=== PATIENT | female | born 1995 | race Caucasian/White ===

== ENCOUNTER 2017-10-15 20:52 | Emergency (ER) | payer BC ==
[~2017-10-15] VITALS: Ht 160 cm; Wt 53.1 kg
[2017-10-15 20:58] VITALS: TEMP 36.7; Ht 160 cm; Wt 53.1 kg
[2017-10-15] MEDS ORDERED: BCPILLS PO (21:15)
[2017-10-15] MEDS ORDERED: [UNRECOGNIZED DRUG - REMARK] (21:15)
[2017-10-15] MEDS ORDERED: PSEU1TAB2 PO (21:15)
--- NOTE | 2017-10-15 21:20 | EMERGENCY ROOM VISIT NOTE ---
History Report prepared by Tej: Kerwin Brown Under the Supervision of: Dr. Arleen Galeano D.O. First contact with patient: 21:01 Chief Complaint: RESPIRATORY PROBLEMS Stated Complaint: WHEEZING,BLOODY SPUTUM History of Present Illness The patient is a 22 year old female who presents to the Emergency Room with complaints of a worsening illness that started last week. She says that her original problem was that her left ear was really full and she had some congestion, so she went to [facility] 7 days ago and was put on Sudafed and a nasal spray. She states that she thinks her illness has moved into her chest, and she has been blowing bloody nasal congestion for 3 days now intermittently. No spontaneous nosebleed. The patient notes that she can hear some wheezing and can feel that her heart is racing. She says that she has been having a bit of a sore throat at night. She states that she has had a cough as well. She denies any chest pain or pressure, heart skipping or fluttering, shortness of breath, facial pain or pressure, or fevers or chills. She notes that she has been staying hydrated and she says that she does not drink much caffeine. She says that she has a family history of thyroid problems, but has never had her thyroid checked. Source of History: patient Onset: A week ago Position: other (global - illness) Quality: other (was seen at [facility] last week) Timing: worsening Associated Symptoms: + sorethroat, + cough, No fevers, No chills, No chest pain, No SOB Note: Associated symptoms: Bloody sputum. Can hear wheezing. Denies heart skipping or fluttering, facial pain or pressure. Review of Systems See HPI for pertinent positives & negatives. A total of 10 systems reviewed and were otherwise negative. Past Medical & Surgical Medical Problems: (1) Asthma (2) No chronic diseases present Family History FH: thyroid disease Hypertension Kidney disease Social History Smoking Status: Never Smoker Marital Status: single Housing Status: lives with roommate Occupation Status: student Current/Historical Medications Scheduled Azithromycin (Zithromax), 250 MG PO DAILY Control Pills ( Control Pills), 1 TAB PO DAILY Scheduled PRN Pseudoephedrine Hcl (Sudafed), 60 MG PO QID PRN for Nasal Congestion [Unknown Nasal [place]], 1 SPRAY NA UD PRN for Nasal Congestion Allergies Coded Allergies: POLLEN (Verified Allergy, Intermediate, Respiratory Symptoms, 10/15/17) Physical Exam Vital Signs Date Time Temp Pulse Resp B/P (MAP) Pulse Ox O2 Delivery O2 Flow Rate FiO2 10/15/17 23:17 91 18 121/74 100 10/15/17 21:39 Room Air 10/15/17 20:58 36.7 100 18 128/81 100 Room Air Physical Exam GENERAL: alert, anxious appearing, well nourished, no distress, non-toxic EYE EXAM: normal conjunctiva, PERRL and EOM's grossly intact OROPHARYNX: Little fluid behind TM's bilaterally, left greater than right, but no erythema or bulging, lips, buccal mucosa, and tongue normal and mucous membranes are moist NECK: supple, no nuchal rigidity, no adenopathy, non-tender LUNGS: Clear to auscultation. Normal chest wall mechanics HEART: no murmurs, S1 normal and S2 normal ABDOMEN: abdomen soft, non-tender, normo-active bowel sounds, no masses, no rebound or guarding. BACK: Back is symmetrical on inspection and there is no deformity, no midline tenderness, no CVA tenderness. SKIN: no rashes and no bruising UPPER EXTREMITIES: upper extremities are grossly normal. LOWER EXTREMITIES: No pitting edema. NEURO EXAM: Normal sensorium, cranial nerves II-XII [grossly] intact, normal speech, no [gross] weakness of arms, no [gross] weakness of legs. [No drift. Finger to nose intact. Gross sensation intact.] Medical Decision & Procedures ER Provider Diagnostic Interpretation: X-ray results have been interpreted by the radiologist and reviewed by me. CHEST 2 VIEWS ROUTINE CLINICAL HISTORY: Cough. COMPARISON STUDY: No previous studies for comparison. FINDINGS: Lung volumes are normal. No pneumothorax or pleural effusion is present. There is no consolidation. Pulmonary vascularity is normal. Cardiomediastinal silhouette is normal. IMPRESSION: No acute cardiopulmonary findings. Electronically signed by: Ismael Phipps M.D. 10/15/2017 10:03 PM Dictated Date/Time: 10/15/2017 10:02 PM Medications Administered Medications (Trade) Dose Ordered Sig/Sharon Route Start Time Stop Time Status Last Admin Dose Admin Albuterol (Ventolin Hfa Inhaler) 2 puffs NOW ONCE INH 10/15/17 21:30 10/15/17 21:31 DC 10/15/17 21:36 2 PUFFS Azithromycin (Zithromax Tab) 500 mg NOW ONCE PO 10/15/17 23:15 10/15/17 23:16 DC 10/15/17 23:17 500 MG ECG Indication: palpitations Rate (beats per minute): 79 Rhythm: normal sinus Findings: no acute ischemic change, no ectopy, other (normal axis, normal intervals) ED Course 2112: The patient was evaluated in room B5. A complete history and physical exam was performed. 2129: Ordered Ventolin Hfa Inhaler 2 puffs INH. 2237: Upon reevaluation, the patient is feeling better. I discussed the findings and the treatment plan with the patient. She verbalizes agreement and understanding. She was discharged home. 2314: Ordered Zithromax Tab 500 mg PO. Medical Decision Differential diagnosis: Etiologies such as viral syndrome, tonsillitis, streptococcal pharyngitis, mononucleosis, peritonsillar abscess, retropharyngeal abscess, otitis, pneumonia , influenza, as well as others were entertained. Pt well appearing despite complaints. HR improved during time in ER. Discussed all results with pt. I do not suspect occult dysrhythmia or cardiac pathology. I do not suspect thyroid storm. Likely sense of racing heart due to underlying anxiety and use of sudafed. No evidence of pneumonia/effusion on cxr, given sx >1 week, discussed with possible bronchitis as she feels the cough is getting worse despite nasal congestion improving. Discussed hydration , inhaler, expectorants, use of antibiotics, probiotics, f/u with PCP/[facility], sx to watch/return for, she verbalized understanding and was agreeable with plan. I do not suspect PE, tamponade, effusion, dissection, deep space infection, pericarditis/myocarditis/endocarditis. Medication Reconcilliation Current Medication List: was personally reviewed by me Blood Pressure Screening Patient's blood pressure: Normal blood pressure Impression Primary Impression: Bronchitis Additional Impression: Palpitations Scribe Attestation The scribe's documentation has been prepared under my direction and personally reviewed by me in its entirety. I confirm that the note above accurately reflects all work, treatment, procedures, and medical decision making performed by me. Departure Information Dispostion Home / Self-Care Prescriptions Azithromycin (Zithromax) 250 Mg Tab 250 MG PO DAILY, #4 TAB Prov: Arleen GaleanoLudwig, DO 10/15/17 Patient Instructions My [facility] Additional Instructions You may continue using the decongestants as needed. Please also consider using an [id number] expectorant. Please make sure you're drinking plenty of water and staying well-hydrated. The decongestants or you're taking could be contributing to her sense of racing heart also. Please avoid any additional caffeine consumption during this time. Please take the medication as prescribed. You may use the inhaler and spacer up to every 4 hours as needed for wheezing/shortness of breath. If you develop any worsening symptoms including trouble breathing, worsening cough, blood in your sputum, fevers, chest pain, or any other new concerns, please return the emergency room. Problem Qualifiers
[2017-10-15] MEDS ORDERED: ALBUTEROL HFA 8 GM INHALER INH ONE (21:30)
--- NOTE | 2017-10-15 22:04 | DIAGNOSTIC IMAGING REPORT ---
CHEST 2 VIEWS ROUTINE CLINICAL HISTORY: Cough. COMPARISON STUDY: No previous studies for comparison. FINDINGS: Lung volumes are normal. No pneumothorax or pleural effusion is present. There is no consolidation. Pulmonary vascularity is normal. Cardiomediastinal silhouette is normal. IMPRESSION: No acute cardiopulmonary findings. Electronically signed by: Ismael Phipps M.D. 10/15/2017 10:03 PM Dictated Date/Time: 10/15/2017 10:02 PM
[2017-10-15] MEDS ORDERED: AZIT250T PO (23:10)
[2017-10-15] MEDS ORDERED: AZITHROMYCIN 250 MG TAB PO ONE (23:15)
[2017-10-15 23:17] VITALS: BP 121/74; PULSE 91; O2SAT 100
== END 2017-10-15 23:17 | disposition home or self-care (01) ==
LOC: C.EDB 20:53
DX: J40 Bronchitis, not specified as acute or chronic (principal); R00.2 Palpitations; Z83.49 Family history of other endocrine, nutritional and metabolic diseases; Z82.49 Family history of ischemic heart disease and other diseases of the circulatory system; Z84.1 Family history of disorders of kidney and ureter; Z79.899 Other long term (current) drug therapy; Z79.3 Long term (current) use of hormonal contraceptives

== ENCOUNTER 2018-01-03 11:17 | Emergency (ER) | payer BC ==
[~2018-01-03] VITALS: Ht 162.6 cm; Wt 54.2 kg
[~2018-01-03 11:17] MED LIST: AZIT250T PO; BCPILLS PO; PSEU1TAB2 PO; [UNRECOGNIZED DRUG - REMARK]
[2018-01-03 11:33] VITALS: TEMP 36.8; Ht 162.6 cm; Wt 54.2 kg
[2018-01-03 12:10] LABS: BASO % 0.2 %; BASO ABS # 0.01 K/uL (0-0.2); EOS % 0.2 %; EOS ABS # 0.01 K/uL (0-0.5); HEMATOCRIT 38.2 % (37-47); HEMOGLOBIN 13.1 g/dL (12.0-16.0); LYMPH % 15.2 %; LYMPH ABS # 0.69 K/uL (1.2-3.4); MEAN CELL VOLUME 84.5 fL (80-100); MEAN CORPUSCULAR HGB CONC 34.3 g/dl (32-36); MEAN PLATELET VOLUME 10.3 fL (7.4-10.4); MONO % 6.6 %; NEUT % 77.8 %; NEUT ABS # 3.52 K/uL (1.4-6.5); PLATELET COUNT 219 K/uL (130-400); RED CELL DISTRIBUTION WIDTH CV 14.2 % (11.5-14.5); RED CELL DISTRIBUTION WIDTH SD 44.1 fL (36.4-46.3); WHITE BLOOD COUNT 4.53 K/uL (4.8-10.8)
--- NOTE | 2018-01-03 12:11 | EMERGENCY ROOM VISIT NOTE ---
History Report prepared by Noamibabida: Barrie Aguirre Under the Supervision of: Dr. Good Atkins M.D. First contact with patient: 12:01 Chief Complaint: ABDOMINAL PAIN Stated Complaint: STOMACH ACHING, HAVE NOT BE ABLE TO EAT IN DAYS Nursing Triage Summary: patient c/o generalized abdominal pain x 4 days. pain worsens after eating and drinking, chills shacky, generalized weakness/tired denies diarrhea. History of Present Illness The patient is a 22 year old white female with a past medical history of asthma who presents to the ED with a cc of constant generalized abdominal pain beginning four days ago. She rates her pain as a 6/10 in severity. She describes the pain as an ache with an intermittent stabbing sensation. She reports her pain occurs after eating and is accompanied by nausea. Positive constant stress, nausea, occasional alcohol use. Negative diarrhea, abdominal surgeries, hematuria, blood in stool, vaginal discharge, recent travel, sick contact. The patient states that her last bowel movement was last night. She reports that her LNMP was four weeks ago. Source of History: patient Onset: four days ago Position: abdomen Symptom Intensity: 6/10 Quality: ache, sharp (intermittent) Timing: constant Modifying Factors (Worsening): eating Associated Symptoms: + nausea, No melena, No hematochezia, No diarrhea Review of Systems See HPI for pertinent positives and negatives. A total of ten systems were reviewed and were otherwise negative. Past Medical & Surgical Medical Problems: (1) Asthma (2) No chronic diseases present Family History FH: thyroid disease Hypertension Kidney disease Social History Smoking Status: Never Smoker Marital Status: single Housing Status: lives with roommate Occupation Status: student Current/Historical Medications Scheduled Control Pills ( Control Pills), 1 TAB PO DAILY Famotidine (Pepcid), 20 MG PO QD Scheduled PRN Ondansetron Hcl (Zofran), 4 MG PO Q8H PRN for Nausea Allergies Coded Allergies: POLLEN (Verified Allergy, Intermediate, Respiratory Symptoms, 01/03/18) Physical Exam Vital Signs Date Time Temp Pulse Resp B/P (MAP) Pulse Ox O2 Delivery O2 Flow Rate FiO2 01/03/18 13:20 60 16 107/62 100 Room Air 01/03/18 11:33 36.8 84 18 120/75 99 Room Air Physical Exam GENERAL: Awake, alert, well-appearing, NAD HENT: Normocephalic, atraumatic. EYES: Normal conjunctiva. Sclera non-icteric. NECK: Supple. No nuchal rigidity. FROM. RESPIRATORY: CTAB, no rhonchi, wheezing, crackles CARDIAC: RRR, no MRG ABDOMEN: Soft, mild diffuse abdominal discomfort, BS+, nonsurgical abdomen. MSK: No chest wall TTP, no LE edema, CVA TTP NEURO: GCS 15, CN 2-12 intact, moves all 4s on command SKIN: No rash or jaundice noted. Medical Decision & Procedures Laboratory Results 01/03/18 12:00 Red Blood Count 4.52, Mean Corpuscular Volume 84.5, Mean Corpuscular Hemoglobin 29.0, Mean Corpuscular Hemoglobin Concent 34.3, Mean Platelet Volume 10.3, Neutrophils (%) (Auto) 77.8, Lymphocytes (%) (Auto) 15.2, Monocytes (%) (Auto) 6.6, Eosinophils (%) (Auto) 0.2, Basophils (%) (Auto) 0.2, Neutrophils # (Auto) 3.52, Lymphocytes # (Auto) 0.69, Monocytes # (Auto) 0.30, Eosinophils # (Auto) 0.01, Basophils # (Auto) 0.01 01/03/18 12:00 Test 01/03/18 12:00 01/03/18 12:19 White Blood Count 4.53 K/uL (4.8-10.8) Red Blood Count 4.52 M/uL (4.2-5.4) Hemoglobin 13.1 g/dL (12.0-16.0) Hematocrit 38.2 % (37-47) Mean Corpuscular Volume 84.5 fL (80-100) Mean Corpuscular Hemoglobin 29.0 pg (25-34) Mean Corpuscular Hemoglobin Concent 34.3 g/dl (32-36) Platelet Count 219 K/uL (130-400) Mean Platelet Volume 10.3 fL (7.4-10.4) Neutrophils (%) (Auto) 77.8 % Lymphocytes (%) (Auto) 15.2 % Monocytes (%) (Auto) 6.6 % Eosinophils (%) (Auto) 0.2 % Basophils (%) (Auto) 0.2 % Neutrophils # (Auto) 3.52 K/uL (1.4-6.5) Lymphocytes # (Auto) 0.69 K/uL (1.2-3.4) Monocytes # (Auto) 0.30 K/uL (0.11-0.59) Eosinophils # (Auto) 0.01 K/uL (0-0.5) Basophils # (Auto) 0.01 K/uL (0-0.2) RDW Standard Deviation 44.1 fL (36.4-46.3) RDW Coefficient of Variation 14.2 % (11.5-14.5) Immature Granulocyte % (Auto) 0.0 % Immature Granulocyte # (Auto) 0.00 K/uL (0.00-0.02) Urine Color YELLOW Urine Appearance CLEAR (CLEAR) Urine pH 5.5 (4.5-7.5) Urine Specific [place] 1.023 (1.000-1.030) Urine Protein NEG (NEG) Urine Glucose (UA) NEG (NEG) Urine Ketones 3+ (NEG) Urine Occult Blood 1+ (NEG) Urine Nitrite NEG (NEG) Urine Bilirubin NEG (NEG) Urine Urobilinogen NEG (NEG) Urine Leukocyte Esterase NEG (NEG) Urine WBC (Auto) 1-5 /hpf (0-5) Urine RBC (Auto) 0-4 /hpf (0-4) Urine Hyaline Casts (Auto) 0 /lpf (0-5) Urine Epithelial Cells (Auto) 20-30 /lpf (0-5) Urine Bacteria (Auto) NEG (NEG) Anion Gap 7.0 mmol/L (3-11) Est Creatinine Clear Calc Drug Dose 80.8 ml/min Estimated GFR () 99.9 Estimated GFR (Non- 86.2 BUN/Creatinine Ratio 14.9 (10-20) Calcium Level 8.6 mg/dl (8.5-10.1) Phosphorus Level 2.1 mg/dl (2.5-4.9) Magnesium Level 2.4 mg/dl (1.8-2.4) Total Bilirubin 0.6 mg/dl (0.2-1) Aspartate Amino Transf (AST/SGOT) 19 U/L (15-37) Alanine Aminotransferase (ALT/SGPT) 18 U/L (12-78) Alkaline Phosphatase 50 U/L (45-117) Total Protein 7.0 gm/dl (6.4-8.2) Albumin 3.8 gm/dl (3.4-5.0) Globulin 3.2 gm/dl (2.5-4.0) Albumin/Globulin Ratio 1.2 (0.9-2) Lipase 93 U/L (73-393) Chemistry Specimen Hemolysis Urine Test NEG (NEG) Laboratory results reviewed by me Medications Administered Medications (Trade) Dose Ordered Sig/Sharon Route Start Time Stop Time Status Last Admin Dose Admin Ondansetron HCl (Zofran Inj) 4 mg Q6H IV. 01/03/18 12:30 02/02/18 12:29 01/03/18 12:28 4 MG Dicyclomine HCl (Bentyl Cap) 10 mg NOW ONCE PO 01/03/18 12:30 01/03/18 12:31 DC 01/03/18 12:27 10 MG Famotidine (Pepcid Tab) 20 mg NOW ONCE PO 01/03/18 13:30 01/03/18 13:31 DC 01/03/18 13:37 20 MG Al Hydroxide/Mg Hydroxide (Maalox Susp) 30 ml STK-MED ONCE .ROUTE 01/03/18 13:35 01/03/18 13:36 DC 01/03/18 13:37 30 ML Lidocaine HCl (Viscous Lidocaine 2% Soln) 20 ml STK-MED ONCE .ROUTE 01/03/18 13:35 01/03/18 13:36 DC 01/03/18 13:37 20 ML ED Course 1204: The patient was evaluated in room B04B. A complete history and physical exam was performed. 1325: I reevaluated the patient. I will order a GI cocktail and Pepcid. Discussed results and discharge instructions: She verbalized understanding and agreement. The patient is ready for discharge after her medication. Medical Decision Triage Nursing notes reviewed. The patient is a 22 year old white female with a past medical history of asthma who presents to the ED with a cc of constant generalized abdominal pain beginning four days ago. The patient's presentation and history were concerning for etiologies such as appendicitis, diverticulitis, PUD, biliary pathology, UTI, pancreatitis, obstruction, mesenteric ischemia, aortic pathology, infections, inflammatory bowel disease, renal colic, as well as others were entertained. Patient was seen and evaluated the bedside. Patient is a young female student. Patient does admit to some occasional drinking. But denies any alcohol or tobacco. Patient has a fairly soft abdomen and only complains of mild diffuse abdominal discomfort. It is vaguely described. Patient has a negative obturator's and psoas. Patient denies any dysuria, hematuria, vaginal bleeding , discharge. Patient's LMP was 4 weeks prior. Patient did have blood work completed along with urinalysis, and her test. She did have some very mild leukopenia. Patient's white blood cell count is to greater than 4000. Patient has a normal H&H. Patient has normal LFTs, and lipase. Patient had a negative urinalysis. Urine test is also negative. Patient was given symptom control and the patient was feeling mildly improved. The patient' s blood work is fairly reassuring with a nonsurgical abdomen I do not believe that the patient requires any further imaging studies at this time. Patient was deemed suitable for outpatient follow-up treatment at this time. Patient was counseled on a more bland diet and avoiding things like spicy and citrus foods. Patient was also told she may take some medications to help with some nausea as well as abdominal discomfort. Patient was told to return if she has any warning signs or worsening of symptoms otherwise she should follow-up with [facility]. Patient was given strict follow-up, discharge, and return precautions. All questions were answered. Patient was deemed suitable for outpatient follow-up at this time. Patient agreed with the plan of care and was safely discharged home. Medication Reconcilliation Current Medication List: was personally reviewed by me Blood Pressure Screening Patient's blood pressure: Normal blood pressure Impression Primary Impression: Abdominal pain Additional Impression: Gastritis Scribe Attestation The scribe's documentation has been prepared under my direction and personally reviewed by me in its entirety. I confirm that the note above accurately reflects all work, treatment, procedures, and medical decision making performed by me. Departure Information Dispostion Home / Self-Care Prescriptions Ondansetron Hcl (ZOFRAN) 4 Mg Tab 4 MG PO Q8H Y for Nausea, #12 TAB Prov: Good Atkins M.D. 01/03/18 Famotidine (PEPCID) 20 Mg Tab 20 MG PO QD for 10 Days, #10 TAB Prov: Good Atkins M.D. 01/03/18 Referrals No Doctor, Assigned (PCP) [facility] Forms HOME CARE DOCUMENTATION FORM, IMPORTANT VISIT INFORMATION Patient Instructions Abdominal Pain, My Joselin Pryor [facility] Additional Instructions Please return to the emergency department if you have worsening or recurrent symptoms not amenable to at-home treatment. Please call for a follow-up appointment with her primary care physician. Please take your medications as prescribed. If you have other concerns and/or complaints please feel free to also call your primary care physician's office or return the ED for further evaluation, management, and treatment. You were found to have an elevated blood pressure today (>120 sytolic or >90 diastolic). Per medicare guidelines, you need to follow up with this blood pressure screening with your Primary Care Physician (PCP). For a new PCP call [phone]. You received narcotic or benzodiazepene medication while in the emergency room today. This is an addictive medication that may cause drowziness as well as constipation. Do not drive, operate heavy machinery, or drink alcohol under the influence of this medication. You may take 600 mg Ibuprofen every 6 hours as needed for pain with food for no more than 2 consecutive days. You may take tylenol 1000 mg every 6 hours as needed for pain. You may take motrin and tylenol separately or at the same time. Take your medications as prescribed. Consider a more bland diet. Avoid things like spicy citrus foods until you are able to tolerate them with improvement. If you do have persistent symptoms may either return or follow-up at [facility]. You have been examined and treated today on an emergency basis only. This is not a substitute for, or an effort to provide, complete comprehensive medical care. It is impossible to recognize and treat all injuries or illnesses in a single emergency department visit. It is therefore important that you follow up closely with [facility], your PCP, and/or your specialist(s). Call as soon as possible for an appointment. Thank you for your time and consideration. I look forward to speaking with you again soon. Please don't hesitate to call us if you have any questions. Problem Qualifiers Primary Impression: Abdominal pain Abdominal location: generalized Qualified Codes: R10.84 - Generalized abdominal pain Additional Impression: Gastritis Gastritis type: unspecified gastritis Chronicity: unspecified Gastritis bleeding: presence of bleeding unspecified Qualified Codes: K29.70 - Gastritis, unspecified, without bleeding
[2018-01-03] MEDS ORDERED: KETOROLAC TROMETHAMINE 30 MG/ML VIAL IV STA (12:19)
[2018-01-03 12:30] LABS: ALBUMIN 3.8 gm/dl (3.4-5.0); CALCIUM 8.6 mg/dl (8.5-10.1); CREATININE 0.95 mg/dl (0.60-1.20); POTASSIUM 3.6 mmol/L (3.5-5.1)
[2018-01-03] MEDS ORDERED: ONDANSETRON INJ 2 MG/ML 2 ML VIAL IV. SCH (12:30)
[2018-01-03] MEDS ORDERED: DICYCLOMINE HCL 10 MG CAP PO ONE (12:30)
[2018-01-03 12:46] LABS: PHOSPHORUS 2.1 mg/dl (2.5-4.9)
[2018-01-03] MEDS ORDERED: ONDA4TAB46 PO (13:29)
[2018-01-03] MEDS ORDERED: FAMO20TA9 PO (13:29)
[2018-01-03] MEDS ORDERED: FAMOTIDINE 20 MG TAB PO ONE (13:30)
[2018-01-03] MEDS ORDERED: GI COCKTAIL PO STA (13:30)
[2018-01-03] MEDS ORDERED: ALUMINUM/MAGNESIUM SUSP 30 ML UDC ONE (13:35)
[2018-01-03] MEDS ORDERED: LIDOCAINE HCL 2% VISC SOLN 20 ML UDC ONE (13:35)
[2018-01-03 14:14] VITALS: BP 112/67; PULSE 62; O2SAT 99
== END 2018-01-03 14:14 | disposition home or self-care (01) ==
LOC: C.EDB 11:18
DX: R10.84 Generalized abdominal pain (principal); K29.70 Gastritis, unspecified, without bleeding; J45.909 Unspecified asthma, uncomplicated; Z79.3 Long term (current) use of hormonal contraceptives; Z82.49 Family history of ischemic heart disease and other diseases of the circulatory system; Z91.048 Other nonmedicinal substance allergy status